=== PATIENT | female | born 1955 | race Caucasian/White ===

== ENCOUNTER 2022-04-22 16:39 | Emergency (ER) | payer MEDICARE, OTHER ==
[~2022-04-22] VITALS: Ht 175.3 cm; Wt 81.6 kg
--- NOTE | 2022-04-22 16:55 | NUR ---
BIB [facility] with c/o chest pain, pt to room 4A. Pt states intermittent chest pain/pressure but none at this time. Pt was given ASA 324mg po and NTG SL by EMS in route to ER (per EMS report).
[2022-04-22 17:32] LABS: HEMATOCRIT 35.4 % (31.2-41.9); MEAN CORPUSCULAR HEMOGLOBIN 28.6 uug (24.7-32.8); MEAN CORPUSCULAR VOLUME 83.2 fL (75.5-95.3); PLATELET COUNT (AUTO) 234 K/uL (179-408)
[2022-04-22] MEDS ORDERED: FENO145T21 PO (17:37)
[2022-04-22] MEDS ORDERED: ERGO500040 PO (17:37)
[2022-04-22] MEDS ORDERED: DOCU100T9 PO (17:37)
[2022-04-22] MEDS ORDERED: NITR0.4T SL (17:37)
[2022-04-22] MEDS ORDERED: SERT25TA PO (17:37)
[2022-04-22] MEDS ORDERED: AMLO-212 PO (17:37)
[2022-04-22] MEDS ORDERED: CLOP75TA15 PO (17:37)
[2022-04-22] MEDS ORDERED: OMEP40CA21 PO (17:37)
[2022-04-22] MEDS ORDERED: ATOR40TA PO (17:37)
[2022-04-22] MEDS ORDERED: CLOT15CR5 TP (17:37)
[2022-04-22] MEDS ORDERED: OLME20TA13 PO (17:37)
[2022-04-22] MEDS ORDERED: TRAZ-182 PO (17:37)
[2022-04-22] MEDS ORDERED: ASPI81TA31 PO (17:37)
[2022-04-22] MEDS ORDERED: IBUP-1957 PO (17:37)
[2022-04-22 18:03] LABS: CARBON DIOXIDE 29 mmol/L (21-32); CHLORIDE 105 mmol/L (98-107); CREATININE 0.8 mg/dL (0.6-1.3); GLUCOSE 111 mg/dL (74-106); POTASSIUM 3.6 mmol/L (3.5-5.1); UREA NITROGEN, BLOOD 20 mg/dL (7-18)
--- NOTE | 2022-04-22 18:24 | NUR ---
Pt resting with NAD noted.
[2022-04-22] MEDS ORDERED: ENOXAPARIN SODIUM 80 MG/0.8 ML DISP.SYRIN SQ ONE ×2 (20:15)
--- NOTE | 2022-04-22 21:45 | NUR ---
IV removed. Catheter intact and site benign. Pressure and 4x4 gauze applied to site. No bleeding noted.
--- NOTE | 2022-04-22 22:10 | NUR ---
Patient does not wish to proceed with medical care recommended by (subhash ). Patient given information related to possible complications, up to and including , which could occur as a result of leaving the hospital at this time. Patient verbalizes understanding of risks involved due to leaving against medical advice. Patient has signed AMA form.
== END 2022-04-22 22:10 | disposition left against medical advice (07) ==
LOC: ER 16:39
DX: I25.110 Atherosclerotic heart disease of native coronary artery with unstable angina pectoris (principal); Z20.822 Contact with and (suspected) exposure to COVID-19; I25.2 Old myocardial infarction; Z95.5 Presence of coronary angioplasty implant and graft; Z28.310 Unvaccinated for COVID-19; Z79.02 Long term (current) use of antithrombotics/antiplatelets; Z79.899 Other long term (current) drug therapy
CPT/HCPCS: 99285; 86870; 71045; 87426; 80048; 83880; 85025; 85730; 86850; 86900; 86901; 84484 ×2; 36415; 93005; 96372; J1650; A4663